=== PATIENT | female | born 1965 | race Caucasian/White ===

== ENCOUNTER 2020-04-03 23:13 | Emergency (ER) | payer MEDICAID ==
[~2020-04-03] VITALS: Ht 167.6 cm; Wt 56.0 kg
[2020-04-04] MEDS ORDERED: KETOROLAC 60MG/2ML VIAL IM STA (00:04)
[2020-04-04] MEDS ORDERED: DEXAMETHASONE 10 MG/ML VIAL IV ONE (00:15)
[2020-04-04] MEDS ORDERED: DEXAMETHASONE 10 MG/ML VIAL IM ONE (00:15)
[2020-04-04] MEDS ORDERED: PENICILLIN G BENZATHINE 1,200,000 UNITS/2ML SYR IM ONE (00:15)
[2020-04-04] MEDS ORDERED: KETOROLAC 30MG/ML VIAL IV STA (00:17)
[2020-04-04] MEDS ORDERED: TETRACAINE/BENZOCAINE/BUTAMBEN 20 GM SPRAY MM SCH (00:30)
[2020-04-04] MEDS ORDERED: VISCOUS LIDOCAINE 2% 15 ML UDC MM ONE (00:30)
[2020-04-04 00:44] LABS: BASOPHILS % 0.5 % (0.0-2.0); EOSINOPHILS % 1.4 % (0.0-5.0); HEMATOCRIT. 40.7 % (36.0-48.0); HEMOGLOBIN. 13.9 g/dL (12.0-16.0); LYMPHOCYTES % 8.8 % (20.0-50.0); MEAN CORPUSCULAR VOLUME 93.6 fL (81.0-99.0); MEAN PLATELET VOLUME 7.1 fl (7.4-10.4); MONOCYTES % 6.8 % (2.0-8.0); NEUTROPHILS % 82.5 % (40.0-76.0); PLATELET 313 x1000/uL (130-400); RED BLOOD CELL COUNT 4.35 mill/uL (4.2-5.4); RED CELL DISTRIBUTION WIDTH 12.9 % (11.6-14.6)
[2020-04-04 00:47] LABS: PROTHROMBIN TIME 10.3 sec (9.6-11.0)
[2020-04-04 00:50] LABS: CLARITY URINE CLEAR (CLEAR); COLOR URINE YELLOW (YELLOW); KETONES URINE NEGATIVE (NEGATIVE); LEUKOCYTE ESTERASE URINE 1+ (NEGATIVE); NITRITE URINE NEGATIVE (NEGATIVE); OCCULT BLOOD URINE 1+ (NEGATIVE); PROTEIN URINE NEGATIVE (NEGATIVE); SPECIFIC GRAVITY URINE 1.015 (1.005-1.030); UROBILINOGEN URINE 0.2 E.U./dL (0.2-1.0)
[2020-04-04 00:52] LABS: CHLORIDE 108 mEq/L (98-107)
[2020-04-04] MEDS ORDERED: SODIUM CHLORIDE 0.9% 1000ML BAG (SEPSIS BOLUS) IV ONE (01:00)
[2020-04-04] MEDS ORDERED: CLINDAMYCIN 600MG PREMIX 50 ML IV SCH (01:15)
[2020-04-04 04:07] VITALS: BP 122/80
== END 2020-04-04 04:22 | disposition home or self-care (01) ==
LOC: ER 23:13
DX: J36 Peritonsillar abscess (principal)
CPT/HCPCS: 36415; 80048; 81003; 83605; 85025; 85610; 87040; 87070; 87077; 87086; 87186; 87430; 96361; 96365; 96372; 96375; 99284; J0561; J1100; J1885; J3490

== ENCOUNTER 2020-08-23 12:18 | Emergency (ER) | payer OTHER, MEDICAID ==
[~2020-08-23] VITALS: Ht 165.1 cm; Wt 68.0 kg
[2020-08-23 12:30] VITALS: BP 129/83
[2020-08-23] MEDS ORDERED: TETRACAINE 0.5% OPHTH DROPS 4ML RIGHTEYE ONE (14:15)
[2020-08-23] MEDS ORDERED: FLUORESCEIN SODIUM 1MG/STRIP RIGHTEYE ONE (14:15)
== END 2020-08-23 15:15 | disposition left against medical advice (07) ==
LOC: ER 12:18
DX: T15.81XA Foreign body in other and multiple parts of external eye, right eye, initial encounter (principal); H57.89 Other specified disorders of eye and adnexa; Y93.89 Activity, other specified; Y92.012 Bathroom of single-family (private) house as the place of occurrence of the external cause
CPT/HCPCS: 99281; Z7610